=== PATIENT | female | born 1950 | race Asian ===

== ENCOUNTER 2016-09-01 00:36 | Emergency (ER) | payer BC ==
[2016-09-01 01:53] LABS: BASOPHIL % 1.9 % (0-2); PLATELET COUNT 273 x10^3mcL (130-400); RED CELL DISTRIBUTION WIDTH 12.7 % (11.5-14.5)
[2016-09-01 02:01] LABS: CALCIUM 8.7 mg/dL (8.5-10.1); CARBON DIOXIDE 27.9 mmol/L (21-32); CHLORIDE SERUM 107 mmol/L (98-107); CREATININE SERUM 0.5 mg/dL (0.6-1.0); GFR1 > 60 mL/min; GLUCOSE SERUM 94 mg/dL (74-106); POTASSIUM SERUM 3.9 mmol/L (3.5-5.1); SODIUM SERUM 143 mmol/L (136-145)
[2016-09-01 02:06] LABS: ALKALINE PHOSPHATASE 88 U/L (46-116); ALT/SGPT 28 U/L (14-59); AST/SGOT 23 U/L (15-37); BILIRUBIN TOTAL 0.15 mg/dL (0.20-1.00); TOTAL PROTEIN, SERUM 6.8 g/dL (6.4-8.2)
[2016-09-01 02:07] LABS: ALBUMIN 3.3 g/dL (3.4-5.0)
[2016-09-01 05:00] VITALS: BP 120/68
== END 2016-09-01 05:00 | disposition left against medical advice (07) ==
LOC: ED 00:36
PROVIDERS: Emergency Medicine
DX: R07.89 Other chest pain (principal); I10 Essential (primary) hypertension; M79.602 Pain in left arm
CPT/HCPCS: G0480; J1200; J2270; J2405; Q0092; Q9967